=== PATIENT | male | born 1950 | race Hispanic/Latino ===

== ENCOUNTER 2017-11-13 20:04 | Inpatient (IN) | payer MEDICAID, MEDICARE ==
[2017-11-13 20:13] VITALS: RESP 20
[2017-11-13 20:46] LABS: SQUAMOUS EPITHIAL 2 /hpf (0-5); URINE BILIRUBIN 1+ (NEGATIVE); URINE BLOOD NEGATIVE (NEGATIVE); URINE CLARITY Hazy (Clear); URINE COLOR Amber (YELLOW); URINE GLUCOSE (UA) NORMAL (Normal); URINE HYALINE CAST 0-2 /lpf (0-2); URINE LEUKOCYTE ESTERASE NEG Leu/uL (Negative); URINE PROTEIN 2+ mg/dL (NEGATIVE)
[2017-11-13 20:58] LABS: BARBITURATES, UR NEGATIVE (NEGATIVE); BENZODIAZEPINES, UR NEGATIVE (NEGATIVE); PHENCYCLIDINE, UR NEGATIVE (NEGATIVE)
[2017-11-13 21:00] LABS: BASO # 0.1 K/uL (0.0-0.2); BASO % 0.7 % (0.0-2.0); EOS # 0.1 K/uL (0.0-0.7); EOS % 0.6 % (0.0-4.0); LYMPH # 4.6 K/uL (1.0-4.3); LYMPH % 44.9 % (20.0-40.0); MEAN CELL VOLUME 82.2 fL (80.0-94.0); MEAN CORPUSCULAR HEMOGLOBIN 27.2 pg (27.0-31.0); MEAN PLATELET VOLUME 8.5 fL (7.2-11.7); MONO # 1.1 K/uL (0.0-0.8); MONO % 11.2 % (0.0-10.0); NEUT # 4.3 K/uL (1.8-7.0); NEUT % 42.6 % (50.0-75.0); NRBC % 0.1 % (0.0-2.0); RBC 4.41 Mil/uL (4.40-5.90); RED CELL DISTRIBUTION WIDTH 21.2 % (11.5-14.5); WHITE BLOOD COUNT 10.1 K/uL (4.8-10.8)
[2017-11-13 21:05] LABS: OPIATES, UR POSITIVE (NEGATIVE)
[2017-11-13 21:14] LABS: ALB/GLOB RATIO 0.8 (1.0-2.1); ALBUMIN 4.2 g/dL (3.5-5.0); ALT/SGPT 58 U/L (21-72); AST/SGOT 143 U/L (17-59); BLOOD UREA NITROGEN 14 mg/dL (9-20); CALCIUM 7.7 mg/dl (8.6-10.4); GFR AFRICAN-AMERICAN > 60; GFR NON-AFRICAN AMERICAN > 60
--- NOTE | 2017-11-13 21:36 | C.PDOC ---
History Of Present Illness 67 y/o male presents to the ED requesting detox. Patient was prescreened for alcohol detox. States he drank a small bottle of vodka just prior to arrival. Otherwise patient offers no physical complaints. No recent falls or injuries. Time Seen by Provider: 11/13/17 20:23 Chief Complaint (Nursing): Substance Abuse History Per: Patient History/Exam Limitations: no limitations Onset/Duration Of Symptoms: Days Current Symptoms Are (Timing): Still Present Modifying Factor(s): Alcohol Past Medical History Reviewed: Historical Data, Nursing Documentation, Vital Signs Vital Signs: Last Vital Signs Temp 98 F 11/13/17 20:07 Pulse 82 11/13/17 20:07 Resp 20 11/13/17 20:07 BP 128/80 11/13/17 20:07 Pulse Ox 99 11/13/17 21:39 - Medical History PMH: Anxiety, Back Problems (on morphine and dilaudid oral for chronic back pain ), Bronchitis, Fractures, Gall Bladder Disease (Hx gallstones), Hepatitis (C) Denies: HIV, Chronic Kidney Disease Surgical History: Cholecystectomy - [facility] Procedures APPLICATION OF SPLINT (10/09/13) EXCISION OF STOMACH, PYLORUS, ENDO, DIAGN (05/28/17) INJECT/INFUSE NEC (06/13/14) INSPECTION OF UPPER INTESTINAL TRACT, ENDO (05/28/17) INTRODUCTION OF OTHER THERAPEUTIC SUBSTANCE INTO UP GI, ENDO (05/28/17) TRANSFUSE NONAUT RED BLOOD CELLS IN PERIPH VEIN, PERC (05/28/17) Family History: States: Unknown Family Hx - Social History Hx Alcohol Use: Yes Hx Substance Use: No - Immunization History Hx Tetanus Toxoid Vaccination: Yes Hx Influenza Vaccination: No Hx Pneumococcal Vaccination: No Review Of Systems Except As Marked, All Systems Reviewed And Found Negative. Constitutional: Negative for: Fever, Sweats Respiratory: Negative for: Shortness of Breath Gastrointestinal: Negative for: Vomiting Psych: Positive for: Other (alcohol abuse) Physical Exam - Physical Exam Appears: No Acute Distress, Other (Thin, intoxicated, calm and cooperative) Skin: Warm, Dry Head: Atraumatic, Normacephalic Eye(s): bilateral: Normal Inspection, PERRL, EOMI Nose: Normal Oral Mucosa: Moist Neck: Normal ROM Chest: Symmetrical Cardiovascular: Rhythm Regular, No Murmur Respiratory: Normal Breath Sounds, No Accessory Muscle Use Gastrointestinal/Abdominal: Soft, No Tenderness, No Distention Extremity: Bilateral: Atraumatic, Normal Color And Temperature, Normal ROM Neurological/Psych: Oriented x3 ED Course And Treatment - Laboratory Results Result Diagrams: 11/13/17 20:51 11/13/17 20:51 Lab Interpretation: Abnormal (ETOH 239 H, tox + opiates/THC) O2 Sat by Pulse Oximetry: 99 (RA) Pulse Ox Interpretation: Normal Reevaluation Time: 22:17 Reassessment Condition: Improved - Physician Consult Information Outcome Of Conversation: 2215: d/w Crisis- ok to admit. Medical Decision Making Medical Decision Making: Impression: 67 y/o with alcohol abuse Blood work and urine ordered and reviewed. U tox + alcohol, opiates, and cannabanoids uses marijuana for apetite stimulation + opiates from Dilaudid PO for chronic back pain (not evident on exam) Disposition Doctor Will See Patient In The: Hospital Counseled Patient/Family Regarding: Studies Performed, Diagnosis - Disposition Disposition: HOSPITALIZED Disposition Time: 22:20 Condition: GOOD Forms: [employer] (Bulgarian) - Clinical Impression Clinical Impression: Alcohol abuse - Scribe Statement The provider has reviewed the documentation as recorded by the Scribe (Aiyana [email or web address]) Provider Attestation: All medical record entries made by the Scribe were at my direction and personally dictated by me. I have reviewed the chart and agree that the record accurately reflects my personal performance of the history, physical exam, medical decision making, and the department course for this patient. I have also personally directed, reviewed, and agree with the discharge instructions and disposition.
[2017-11-14 00:04] VITALS: BP 117/69; PULSE 90; TEMP 97.6; O2SAT 100
--- NOTE | 2017-11-14 13:26 | PCM.PSYCH ---
Initial Psychiatric Evaluation - Initial Psychiatric Evaluation Type of Admission: Voluntary Legal Status: Capacity History of Present Illness and Precipitating Events: The pt is NOT seen by the leader writer but juan owens saw him before he left. He came for alcohol detox and he was made aware of all unit rules. When he revealed that he has to take methadone instead of dilauded he rejected and and asked to be discharged. He was also verbally abusive and intimidating to the staff, as per our nurse Day. Security was called and he was escorted out after review by our dr. Risks of leaving AMA, incl. seizure, relapse and even , discussed and he understood but he did not change his mind. Past Psychiatric History - Past Psychiatric History Pertinent Medical Hx (Current Medical&Sleep Prob, Allergies): Allergies Allergy/AdvReac Type Severity Reaction Status Date / Time No Known Allergies Allergy Verified 03/17/14 21:51 HYDROmorphone [Dilaudid] 8 mg PO Q6H 11/28/15 Pantoprazole [Protonix EC Tab] 40 mg PO BID #60 ect 05/29/17 DSM 5 DX - DSM 5 DSM 5 Diagnosis: Alcohol withdrawal Alcohol use d/o - severe - Recommended/Plan of Treatment Treatment Recommendations and Plan of Treatment: He will not be treated as he left AMA. He is advised to return to ER if he gets into withdrawal or changes his mind.
--- NOTE | 2017-11-14 13:28 | PCM.PYCHDC ---
Mental Status Examination - Mental Status Examination Orientation: Person (MSE not conducted b/c he left w/o seeing the typewriters functional tester.) Discharge Summary - Discharge Note Reason for Hospitalization: Alcohol detox Laboratory Data: Abnormal Lab Results 11/13/17 11/13/17 11/13/17 20:32 20:32 20:51 WBC 10.1 RBC 4.41 Hgb 12.0 Hct 36.2 MCV 82.2 MCH 27.2 MCHC 33.0 RDW 21.2 H Plt Count 311 MPV 8.5 Neut % (Auto) 42.6 L Lymph % (Auto) 44.9 H [place] % (Auto) 11.2 H Eos % (Auto) 0.6 Baso % (Auto) 0.7 Neut # (Auto) 4.3 Lymph # (Auto) 4.6 H [place] # (Auto) 1.1 H Eos # (Auto) 0.1 Baso # (Auto) 0.1 Sodium Potassium Chloride Carbon Dioxide Anion Gap BUN Creatinine Est GFR ( Amer) Est GFR (Non-Af Amer) Random Glucose Calcium Total Bilirubin AST ALT Alkaline Phosphatase Total Protein Albumin Globulin Albumin/Globulin Ratio Urine Color [place] Urine Clarity Hazy Urine pH 5.0 Ur Specific [place] 1.036 H Urine Protein 2+ H Urine Glucose (UA) Normal Urine Ketones Trace Urine Blood Negative Urine Nitrate Negative Urine Bilirubin 1+ H Urine Urobilinogen 4.0 Ur Leukocyte Esterase Neg Urine WBC (Auto) 1 Urine RBC (Auto) 3 Ur Squamous Epith Cells 2 Hyaline Casts 0-2 Urine Opiates Screen Positive H Urine Methadone Screen Negative Ur Barbiturates Screen Negative Ur Phencyclidine Scrn Negative Ur Amphetamines Screen Negative U Benzodiazepines Scrn Negative U Oth Cocaine Metabols Negative U Cannabinoids Screen Positive H Alcohol, Quantitative 11/13/17 20:51 WBC RBC Hgb Hct MCV MCH MCHC RDW Plt Count MPV Neut % (Auto) Lymph % (Auto) [place] % (Auto) Eos % (Auto) Baso % (Auto) Neut # (Auto) Lymph # (Auto) [place] # (Auto) Eos # (Auto) Baso # (Auto) Sodium 145 Potassium 3.7 Chloride 99 Carbon Dioxide 28 Anion Gap 22 H BUN 14 Creatinine 0.7 L Est GFR ( Amer) > 60 Est GFR (Non-Af Amer) > 60 Random Glucose 109 Calcium 7.7 L Total Bilirubin 1.0 AST 143 H D ALT 58 Alkaline Phosphatase 124 Total Protein 9.3 H Albumin 4.2 Globulin 5.1 H Albumin/Globulin Ratio 0.8 L Urine Color Urine Clarity Urine pH Ur Specific [place] Urine Protein Urine Glucose (UA) Urine Ketones Urine Blood Urine Nitrate Urine Bilirubin Urine Urobilinogen Ur Leukocyte Esterase Urine WBC (Auto) Urine RBC (Auto) Ur Squamous Epith Cells Hyaline Casts Urine Opiates Screen Urine Methadone Screen Ur Barbiturates Screen Ur Phencyclidine Scrn Ur Amphetamines Screen U Benzodiazepines Scrn U Oth Cocaine Metabols U Cannabinoids Screen Alcohol, Quantitative 239 H Consultations:: List each consultation separately and include: 1. Reason for request. 2. Findings. 3. Follow-up Summary of Hospital Course include:: 1. Description of specific treatment plan utilized for patients during their course of treatmen. 2. Summarize the time- course for resolution of acute symptoms and/or regressed behaviors. 3. Describe issues identified and worked on during hospitalization. 4. Describe medication utilized. 5. Describe medical problems identified and treated. 6. Reassessment of suicide risk Summary of Hospital Course: The pt is NOT seen by the typewriters functional tester but juan owens saw him before he left. He came for alcohol detox and he was made aware of all unit rules. When he revealed that he has to take methadone instead of dilauded he rejected and and asked to be discharged. He was also verbally abusive and intimidating to the staff, as per our nurse Day. Security was called and he was escorted out after review by our dr. Risks of leaving AMA, incl. seizure, relapse and even , discussed and he understood but he did not change his mind. - Final Diagnosis (DSM 5) Condition upon Discharge: FAIR DSM 5: Alcohol withdrawal Alcohol use d/o -severe Disposition: AGAINST MEDICAL ADVICE Follow-up Treatment Plan: Use relapse prevention skills Return to ER or call 911 if suicidal, homicidal or symptoms relapse, incl. withdrawal Stay away from stress, alcohol and drugs. See primary doctor regularly and get labs.
== END 2017-11-14 00:14 | disposition left against medical advice (07) | DRG 894 ==
LOC: C.ER 20:04 → C.7D 22:20
PROVIDERS: ADMIT Psychiatry & Neurology Psychiatry; ATTEND Psychiatry & Neurology Psychiatry
DX: F10.230 Alcohol dependence with withdrawal, uncomplicated (principal); F12.90 Cannabis use, unspecified, uncomplicated; G89.29 Other chronic pain; M54.5 Low back pain